=== PATIENT | male | born 1980 | race Caucasian/White ===

== ENCOUNTER 2019-04-14 12:40 | Emergency (ER) | payer MEDICAID, SELFPAY ==
[2019-04-14 12:42] VITALS: BP 132/112; PULSE 49; RESP 16; TEMP 36.8; O2SAT 99; BMI 26.4
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
== END 2019-04-14 13:17 | disposition home or self-care (01) ==
PROVIDERS: Emergency Provider Emergency Medicine
DX: M54.12 Radiculopathy, cervical region (principal); M54.2 Cervicalgia; M54.9 Dorsalgia, unspecified; Z88.0 Allergy status to penicillin; Z88.5 Allergy status to narcotic agent
CPT/HCPCS: 99282

== ENCOUNTER 2021-05-02 14:17 | Emergency (ER) | payer OTHER, SELFPAY ==
[2021-05-02 14:18] VITALS: BP 111/65; PULSE 97; RESP 16; TEMP 36.3; O2SAT 95; BMI 25.9
--- NOTE | 2021-05-02 14:49 | EDS_ITS ---
HPI History of Present Illness Chief Complaint: Back Detail of Chief Complaint: Back pain x3 days Informant: patient Narrative Narrative: Patient presents to the emergency department chief complaint of back pain is her 3 days ago. Patient states that he was moving the household and moved some large objects on Monday but does not recall an exact time of injury. After the move he started having more discomfort. He describes some pain ra diating into his left hip and lateral mid left thigh. He denies loss of bowel or bladder function. He is having normal bowel movements. He denies saddle anesthesia. He denies weakness in the extremity. Patient does not have history of back pain issues. Patient denies urinary symptoms. He has had history of kidney stones but states this is definitely different than kidney stone. Pain is positional and sometimes he can get into a position where he has less pain. Prior similar symptoms: No PFSH PFSH Home Medications atorvastatin 20 mg PO DAILY 05/02/21 [History Last Taken Unknown] cyclobenzaprine 10 mg PO TID PRN #20 tablet 05/02/21 [Rx Last Taken Unknown] meloxicam 15 mg PO PRN PRN 05/02/21 [History Last Taken Unknown] naproxen 500 mg PO BID #20 tab 05/02/21 [Rx Last Taken Unknown] oxycodone-acetaminophen 1 tab PO Q6H PRN PRN 5 Days #20 tablet 05/02/21 [Rx Last Taken Unknown] tizanidine 4 mg PO PRN PRN 05/02/21 [History Last Taken Unknown] Allergy/AdvReac Type Severity Reaction Status Date / Time morphine Allergy Hives Verified 05/02/21 14:18 Penicillins Allergy Hives Verified 05/02/21 14:18 Social History Smoking Status: Current every day smoker tobacco type: cigarettes ROS ROS ED Constitutional Constitutional ED: Reports systems reviewed and no addt'l complaints, except as documented; Denies body ache(s), change in weight or chills Eyes Eyes: Denies acute decrease in peripheral vision, change in vision, double vision or loss of vision ENT ENT ED: Reports none; Denies ear pain, lip swelling, loss taste/smell, neck pain, otalgia or sore throat Cardiovascular Cardiovascular: Reports none; Denies abdominal pain, chest pain with activity, leg edema, lightheadedness, palpitations, rapid heart rate or syncope Respiratory/Chest Respiratory/Chest: Reports none; Denies change in mental status, dry cough, dyspnea, hemoptysis, shortness of breath at rest or shortness of breath with exertion Gastrointestinal Gastrointestinal: Reports none; Denies abdominal pain, change in stool character, diarrhea, hematemesis, hematochezia, melena, rectal bleeding or vomiting Genitourinary Genitourinary ED: Reports none; Denies abdominal discomfort, anuria, dysuria, genital pain or polyuria Musculoskeletal Musculoskeletal: Reports none and back pain; Denies arthralgias, difficulty walking, extremity pain, muscle weakness or myalgias Integumentary Reports none; Denies abscess or rash Neurologic Neurologic: Reports none; Denies abnormal gait, confusion, focal weakness, frequent falls, headache(s), loss of vision, numbness, paresthesias, radicular pain, vertigo or weakness Psychiatric Psychiatric: Reports systems reviewed and no addt'l complaints, except as documented and none; Denies behavioral changes, confusion, difficulty concentrating, hallucinations, suicidal ideation, tactile hallucinations or visual hallucinations Endocrine Endocrinology: Denies none, cold intolerance, excessive sweating, fatigue or heat intolerance Hematologic/Lymphatic Hematologic/Lymphatic: Reports none; Denies anemia, easy bleeding or easy bruising Allergic/Immunologic Allergic/Immunologic ED: Denies as per HPI, none, lip swelling, mouth swelling, throat swelling, tongue swelling or hives EXAM Physical Exam Const Vital Signs: 05/02/21 14:18 Temperature 97.4 F L Temperature Source Temporal Pulse Rate 97 Respiratory Rate 16 Blood Pressure 111/65 Blood Pressure Mean 80 Pulse Ox 95 Oxygen Delivery Method Room Air Positive well nourished and well developed General Appearance ED: well developed and NAD HEENT Reports TM's clear and moist mucous membranes normocephalic and atraumatic; Negative for trauma or tenderness Tympanic Membrane ED: Yes TM's clear Eyes PERRL and EOMs intact bilaterally General Eye ED: Negative for pale conjunctiva or scleral icterus Neck no lymphadenopathy, supple and no JVD General: Negative for tenderness Chest Wall inspection of chest normal and palpation of chest normal Chest: Negative for tenderness Resp normal respiratory effort and clear to auscultation bilaterally Effort and Inspection: Negative for respiratory distress or pain with movement Auscultation: Negative for rhonchi, wheezes or diminished lung sounds Cardio regular rate, regular rhythm, S1 normal heart sound, S2 normal heart sound and no murmurs Peripheral Pulses: pulses 2+ throughout GI normal to inspection, nondistended, normoactive bowel sounds, soft to palpation, non-tender, non-distended and no masses Back/Spine no CVA tenderness, normal to inspection and no thoracic nor lumbar tenderness Back/Spine Narrative: Patient has no tenderness over the thoracic or lumbar spine. He does have some tenderness over the left lumbar paraspinal musculature that seems to reproduce his pain. Patient has positive straight leg raise with pain at about 45 degrees. Patient has normal L5 extension. Deep tendon reflexes are diminished bilaterally at +1 at the patella and Achilles. He has normal sensation to light touch. Extremity normal to inspection General Extremety ED: Negative for edema General Extremity: Negative for edema Neuro oriented x3, CN's II-XII intact bilaterally, no sensory deficits noted and gait normal Sensorium / Orientation: awake, alert, oriented to person, oriented to place and oriented to time Motor Exam: strength 5/5 throughout and strength abnormal Psych mental status grossly normal Skin no rashes or lesions noted and no wounds MDM MDM MDM Narrative Medical decision making narrative: Patient was given a shot of Dilaudid as well as Norflex and Toradol. At this point I will feel any imaging is indicated as he has had no direct trauma and no bony tenderness on exam. I suspect likely muscle strain versus possible radiculopathy. No red flag symptoms of cauda equina. Patient advised to follow-up with Dr. Gibson who is the back surgeon within the next 3 to 5 days. Discharge Plan Triage Chief Complaint: Back ED Provider: Shirin Garnett Dx/Rx/DC Orders Clinical Impression: Back pain, Left lumbar radiculopathy Instructions: ED Back and Neck Pain, General, ED Sciatica Prescriptions: New cyclobenzaprine [cyclobenzaprine] 10 MG tablet 10 mg PO TID PRN (Reason: Muscle Spasm) Qty: 20 RF: 0 oxycodone-acetaminophen [oxycodone-acetaminophen] 1 TABLET tablet 1 tab PO Q6H PRN PRN (Reason: pain) 5 Days Qty: 20 RF: 0 naproxen 500 MG tablet 500 mg PO BID Qty: 20 RF: 0 No Action atorvastatin 20 mg tablet 20 mg PO DAILY RF: 0 tizanidine 4 mg tablet 4 mg PO PRN PRN (Reason: Pain) RF: 0 meloxicam 15 mg tablet 15 mg PO PRN PRN (Reason: Pain) RF: 0 [facility] Referrals: Jah Gibson DO [STAFF PHYSICIAN] - 3-5 Days [facility] [Primary Care Provider] - Disposition Disposition: Home, Self Care
[2021-05-02] MEDS: Ketorolac 60 MG/2 ML Vial IM (15:14)
[2021-05-02] MEDS: Orphenadrine 60 MG/2 ML Ampul IM (15:15)
[2021-05-02] MEDS: HYDROmorphone 1 MG/ML Syringe IM (15:15)
[2021-05-02 15:59] VITALS: BP 108/69; PULSE 71; RESP 16; O2SAT 98
== END 2021-05-02 23:59 | disposition home or self-care (01) ==
PROVIDERS: Emergency Provider Emergency Medicine; Visit Provider Emergency Medicine
DX: M54.9 Dorsalgia, unspecified (principal); M54.16 Radiculopathy, lumbar region; F17.210 Nicotine dependence, cigarettes, uncomplicated; Z79.1 Long term (current) use of non-steroidal anti-inflammatories (NSAID); Z79.899 Other long term (current) drug therapy
CPT/HCPCS: 96372; 99282

== ENCOUNTER 2021-06-24 15:11 | Emergency (ER) | payer OTHER, SELFPAY ==
[2021-06-24 15:12] VITALS: BP 155/79; PULSE 102; RESP 15; TEMP 36.7; O2SAT 97; BMI 24.4
[2021-06-24] MEDS: Ketorolac 15 MG/ML Vial IV (15:35)
--- NOTE | 2021-06-24 15:37 | EX.ED.DYSGE1 ---
HPI History of Present Illness Chief Complaint: Other, Pain/Inj Detail of Chief Complaint: Pain to the right of spinous process T1 and discomfort over the trapezius a Informant: patient Onset/Context/Timing Onset: Days Context: Sudden Onset Timing: Continuous and Waxes and wanes Quality: Pain Location: Right of T1 spinous process, trapezius region and proximal lateral right ar Current Severity: Mild Maximum Severity: Severe Worsened by: Certain movements Relieved by: Nothing Associated Symptoms Associated Symptoms: Nothing Narrative Narrative: Patient is a 41-year-old [id number] male who presents with right sided posterior upper back, trapezius and proximal lateral right arm pain described as burning that goes distally to the mid arm. There is certain movements that exacerbates the pain. Nothing alleviates the pain. He had a CT of his neck at outside facility. Will obtain those records. He was told he has a spur. He was placed on burst of prednisone with no improvement. He reports weakness in his grasp. He denies cardiac respiratory symptoms. He denies any recent trauma. He does not recall any injury when he played sports when he was younger. He is left-hand dominant. Prior similar symptoms: Yes Recent Illness/Hospitalization: Yes [facility]SH [facility] Home Medications atorvastatin 20 mg PO DAILY 05/02/21 [History Last Taken Unknown] cyclobenzaprine 10 mg PO TID PRN #20 tablet 05/02/21 [Rx Last Taken Unknown] meloxicam 15 mg PO PRN PRN 05/02/21 [History Last Taken Unknown] naproxen 500 mg PO BID #20 tab 05/02/21 [Rx Last Taken Unknown] oxycodone-acetaminophen 1 tab PO Q6H PRN PRN 5 Days #20 tablet 05/02/21 [Rx Last Taken Unknown] tizanidine 4 mg PO PRN PRN 05/02/21 [History Last Taken Unknown] hydrocodone-acetaminophen 1 tab PO Q6H PRN PRN 3 Days #10 tablet 06/24/21 [Rx Last Taken Unknown] naproxen 500 mg PO BID #14 tab 06/24/21 [Rx Last Taken Unknown] Allergy/AdvReac Type Severity Reaction Status Date / Time morphine Allergy Hives Verified 06/24/21 15:14 Penicillins Allergy Hives Verified 06/24/21 15:14 Social History (Updated 06/24/21 @ 15:[address] Champ Emmanuel MD) household members: spouse Smoking Status: Current every day smoker tobacco type: cigarettes substance use type: does not use ROS ROS ED Constitutional Constitutional ED: Denies chills, fever(s), subjective, sweats or weight loss Eyes Eyes: Denies blurry vision, change in vision or diplopia ENT ENT ED: Denies ear pain, rhinorrhea or sore throat Cardiovascular Cardiovascular: Denies chest pain or palpitations Respiratory/Chest Respiratory/Chest: Denies cough, dyspnea or dyspnea on exertion Gastrointestinal Gastrointestinal: Denies nausea or vomiting Musculoskeletal Musculoskeletal: Reports back pain and neck pain; Denies arthralgias or myalgias Integumentary Denies rash Neurologic Neurologic: Reports weakness; Denies headache(s) or paresthesias EXAM Physical Exam Const Vital Signs: 06/24/21 15:12 06/24/21 15:22 Temperature 98.1 F Temperature Source Temporal Pulse Rate 102 H Respiratory Rate 15 Respiratory Effort Normal Respiratory Pattern Normal Blood Pressure 155/79 H Blood Pressure Mean 104 Pulse Ox 97 Oxygen Delivery Method Room Air Positive well nourished and well developed General Appearance ED: well developed; Negative for cyanotic, diaphoretic, NAD or pallor HEENT Reports moist mucous membranes HEENT Narrative: Nares patent. Ears normal. Negative for trauma or tenderness Eyes PERRL and EOMs intact bilaterally General Eye ED: Negative for pale conjunctiva or scleral icterus Neck no lymphadenopathy, supple and no JVD Neck Narrative: There is tenderness to the right of the spinous process of T1. There is pain over the right trapezius region. There is no pain over the AC joint or clavicle. Having patient AB duct to 90 degrees point his thumb down and having him lift against resistance causes him increased pain. Axillary, median, radial and ulnar function intact. Bicep, brachialis and tricep reflex are 1+ and symmetric. Radial pulses palpable. General: Negative for tenderness Resp normal respiratory effort Cardio regular rate and regular rhythm Back/Spine Cervical Spine: Negative for cervical spine tenderness Thoracic Spine / Upper Back: Negative for thoracic spinal tenderness Extremity normal to inspection General Extremety ED: Negative for edema or tenderness General Extremity: Negative for edema Neuro oriented x3, CN's II-XII intact bilaterally and no sensory deficits noted Neuro Narrative: Additional documentation under neck exam Sensorium / Orientation: alert Motor Exam: strength 5/5 throughout Psych mental status grossly normal Skin no rashes or lesions noted and no wounds General Skin Exam: Negative for jaundice or pallor MDM MDM MDM Narrative Medical decision making narrative: Patient's exam is not consistent with herniated disc or impingement of a cervical nerve root. Will obtain report of CT performed at outside facility. CT indicates he does have degenerative changes. There is a vertebral body osteophyte present there is bilateral foramen narrowing at C5-6. There is bony hypertrophy at the articular facet with mild narrowing of the left foramen. There is no significant disc facet abnormalities or spinal stenosis or foraminal stenosis at C7 or T1. There is no abnormality at C2-C3, there is no significant abnormality at C3-C4. There is disc space narrowing present at C4-C5. There is mild foraminal narrowing noted as well. Discharge Plan Triage Chief Complaint: Other, Pain/Inj ED Provider: Champ Emmanuel Dx/Rx/DC Orders Clinical Impression: Upper back pain on right side, Pain of right shoulder region, Narrowing of intervertebral disc space, Degenerative arthritis of cervical spine Instructions: ED Degenerative Disk Disease, ED Neck Sprain or Strain Prescriptions: New hydrocodone-acetaminophen [hydrocodone-acetaminophen] 1 TABLET tablet 1 tab PO Q6H PRN PRN (Reason: Pain) 3 Days Qty: 10 RF: 0 naproxen 500 MG tablet 500 mg PO BID Qty: 14 RF: 0 No Action atorvastatin 20 mg tablet 20 mg PO DAILY RF: 0 tizanidine 4 mg tablet 4 mg PO PRN PRN (Reason: Pain) RF: 0 meloxicam 15 mg tablet 15 mg PO PRN PRN (Reason: Pain) RF: 0 cyclobenzaprine [cyclobenzaprine] 10 MG tablet 10 mg PO TID PRN (Reason: Muscle Spasm) Qty: 20 RF: 0 oxycodone-acetaminophen [oxycodone-acetaminophen] 1 TABLET tablet 1 tab PO Q6H PRN PRN (Reason: pain) 5 Days Qty: 20 RF: 0 naproxen 500 MG tablet 500 mg PO BID Qty: 20 RF: 0 [facility] - Disposition Disposition: Home, Self Care
[2021-06-24] MEDS: HYDROmorphone 0.5 MG/0.5 ML SYRINGE IV (16:17)
== END 2021-06-24 16:30 | disposition home or self-care (01) ==
PROVIDERS: Emergency Provider Emergency Medicine; Visit Provider Emergency Medicine
DX: M47.812 Spondylosis without myelopathy or radiculopathy, cervical region (principal); M48.02 Spinal stenosis, cervical region; M25.78 Osteophyte, vertebrae; M79.621 Pain in right upper arm; Z79.899 Other long term (current) drug therapy; F17.210 Nicotine dependence, cigarettes, uncomplicated
CPT/HCPCS: 96374; 96375; 99283; A4216

== ENCOUNTER 2021-07-08 17:51 | Emergency (ER) | payer OTHER, SELFPAY ==
[2021-07-08 17:52] VITALS: BP 142/106; PULSE 73; RESP 18; TEMP 36.5; O2SAT 97; BMI 25.0
[2021-07-08] MEDS: HYDROmorphone 1 MG/ML Syringe 0.5 MG IM (18:52)
--- NOTE | 2021-07-08 19:01 | EDS_ITS ---
HPI History of Present Illness Chief Complaint: Other, Pain/Inj Informant: patient Narrative Narrative: Patient is a 41-year-old male presenting for pain control. Patient has pain in his right neck rating down to his right arm and hand. He has associated weakness and numbness and tingling in his arm. He has had a CT which shows disease at C5 and C6 with a spur. He has seen orthospine, Dr. Gibson, who is going to try PT and injections with pain management. Patient's been referred to pain management at [facility] but does not have an appointment until next month. He is already on meloxicam and tizanidine with no relief. He states his pain is worse when he is trying to sleep. He is requesting help with pain control especially as he cannot get in the pain medicine for at least 2 more weeks. Denies any new or progression of his symptoms. Prior similar symptoms: Yes PFSH [facility] Medical History Hyperlipemia Home Medications atorvastatin 20 mg PO DAILY 05/02/21 [History Last Taken Unknown] meloxicam 15 mg PO PRN PRN 05/02/21 [History Last Taken Unknown] naproxen 500 mg PO BID #20 tab 05/02/21 [Rx Last Taken Unknown] tizanidine 4 mg PO PRN PRN 05/02/21 [History Last Taken Unknown] oxycodone-acetaminophen [Percocet] 1 tab PO Q6H PRN 3 Days #12 tab 07/08/21 [Rx Last Taken Unknown] Allergy/AdvReac Type Severity Reaction Status Date / Time morphine Allergy Hives Verified 07/08/21 17:53 Penicillins Allergy Hives Verified 07/08/21 17:53 Social History household members: spouse Smoking Status: Current every day smoker tobacco type: cigarettes substance use type: does not use ROS ROS ED Constitutional Constitutional ED: Denies chills or fever(s) Eyes Eyes: Denies blurry vision or change in vision ENT ENT ED: Denies rhinorrhea Cardiovascular Cardiovascular: Denies chest pain Respiratory/Chest Respiratory/Chest: Denies dyspnea Gastrointestinal Gastrointestinal: Denies abdominal pain or nausea Musculoskeletal Musculoskeletal: Reports neck pain and other Details: right shoulder pain Integumentary Denies rash Neurologic Neurologic: Reports paresthesias and weakness; Denies headache(s) Psychiatric Psychiatric: Denies anxiety or depression EXAM Physical Exam Const Vital Signs: 07/08/21 17:52 Temperature 97.7 F L Temperature Source Temporal Pulse Rate 73 Respiratory Rate 18 Blood Pressure 142/106 H Blood Pressure Mean 118 Pulse Ox 97 Oxygen Delivery Method Room Air Positive well nourished and well developed General Appearance ED: well developed HEENT Reports moist mucous membranes Eyes PERRL and EOMs intact bilaterally Neck supple Chest Wall inspection of chest normal Resp normal respiratory effort and clear to auscultation bilaterally Cardio regular rate and regular rhythm Extremity normal to inspection General Extremety ED: Negative for edema General Extremity: Negative for edema Neuro oriented x3, CN's II-XII intact bilaterally and no sensory deficits noted Neuro Narrative: 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 4-5 strength of the right arm with abduction of the arm. Normal sensation in all dermatomes. Sensorium / Orientation: alert Psych mental status grossly normal Skin no rashes or lesions noted MDM MDM MDM Narrative Medical decision making narrative: Patient is evaluated for worsening right neck pain. He has some associated radicular symptoms. Patient has had a CT of his neck which is reviewed on [facility]. This was done at [facility]. It showed vertebral body osteophytes presents with bilateral foraminal narrowing at C5-C6 and bony hypertrophy of the articular facets and mild narrowing of the left foramen at C6-C7. Patient states he is already seeing orthospine and is waiting to see pain management. He is requesting a short course of pain medication as he is already on anti-inflammatories and muscle relaxers. [facility] report does not show any active prescriptions. Will be given a short course of Percocet for pain control and a dose of IM Dilaudid in the ER. Is counseled that if he continues to return the emergency room for pain management we will not provide him further pain medication then he needs to follow-up with his orthopedist or pain management doctor at that time. Patient verbalized agreement understanding this plan. Discharge Plan Triage Chief Complaint: Other, Pain/Inj ED Provider: Coleen Thomason Dx/Rx/DC Orders Clinical Impression: Neck pain on right side, Radicular pain in right arm Instructions: ED Neck Pain, ED Pain Management: Chronic Prescriptions: New oxycodone-acetaminophen [Percocet] 5-325 mg tablet 1 tab PO Q6H PRN (Reason: pain) 3 Days Qty: 12 RF: 0 No Action atorvastatin 20 mg tablet 20 mg PO DAILY RF: 0 tizanidine 4 mg tablet 4 mg PO PRN PRN (Reason: Pain) RF: 0 meloxicam 15 mg tablet 15 mg PO PRN PRN (Reason: Pain) RF: 0 naproxen 500 MG tablet 500 mg PO BID Qty: 20 RF: 0 [facility] [facility] - Disposition Disposition: Home, Self Care
== END 2021-07-08 19:46 | disposition home or self-care (01) ==
PROVIDERS: Emergency Provider Emergency Medicine; Visit Provider Emergency Medicine
DX: M54.10 Radiculopathy, site unspecified (principal); M54.2 Cervicalgia; E78.5 Hyperlipidemia, unspecified; F17.210 Nicotine dependence, cigarettes, uncomplicated; Z79.1 Long term (current) use of non-steroidal anti-inflammatories (NSAID); Z79.899 Other long term (current) drug therapy
CPT/HCPCS: 96372; 99282